=== PATIENT | female | born 1995 | race Caucasian/White ===

== ENCOUNTER 2017-06-16 10:42 | Emergency (ER) | payer OTHER ==
[~2017-06-16] VITALS: Ht 152.4 cm; Wt 83.5 kg
[2017-06-16 10:53] VITALS: Ht 152.4 cm; Wt 83.5 kg
[2017-06-16] MEDS ORDERED: IBUP400T22 PO (11:54)
[2017-06-16] MEDS ORDERED: DOXY100T20 PO (11:54)
--- NOTE | 2017-06-16 11:57 | ERD ---
ER Documentation Chief Complaint Chief Complaint left thumb swelling x 3 days, no injury HPI This 21-year-old female presents with left thumb pain, redness and swelling for the last 3 days. There is no history of trauma. No fevers, vomiting, shortness of breath or chest pain. ROS All systems reviewed and are negative except as per history of present illness. Medications Home Meds Active Scripts Ibuprofen* (Ibuprofen*) 400 Mg Tablet, 400 MG PO Q6H Y for PAIN, #15 TAB Prov:KASIE MCWILLIAMS MD 06/16/17 Doxycycline Hyclate* (Doxycycline Hyclate*) 100 Mg Tablet.dr, 100 MG PO BID for 7 Days, TAB Prov:KASIE MCWILLIAMS MD 06/16/17 Allergies Allergies: Coded Allergies: No Known Allergy (Unverified , 06/16/17) PMhx/Soc Hx Miscellaneous Medical Probl: Yes (DOWN'S SYNDROME) Hx Alcohol Use: No Hx Substance Use: No Hx Tobacco Use: No Physical Exam Vitals Vital Signs Date Time Temp Pulse Resp B/P Pulse Ox O2 Delivery O2 Flow Rate FiO2 06/16/17 10:53 97.5 95 20 128/69 100 Physical Exam Const: [], [id number]. Head: Atraumatic Eyes: Normal Conjunctiva ENT: Normal External Ears, Nose and Mouth. Neck: Full range of motion..~ No meningismus. Resp: Clear to auscultation bilaterally Cardio: Regular rate and rhythm, no murmurs Abd: Soft, non tender, non distended. Normal bowel sounds Skin: No petechiae or rashes. There is some redness and pointing pustule consistent with a paronychia on the left thumb. There is no bony tenderness or deformities or restricted range of motion weakness or proximal tendon tenderness. Back: No midline or flank tenderness Ext: No cyanosis, or edema Neur: Awake and alert Psych: Normal Mood and Affect Procedures/MDM Patient presents with signs of the left thumb paronychia without evidence to suggest osteomyelitis, tenosynovitis, sepsis, deficits. History does not suggest fracture or dislocation. Procedure note-left thumb was prepped with Betadine. An 18-gauge needle was used to unroofed the paronychia. Significant pus was expressed. Wound was dressed and patient tolerated procedure well. Discharged home with a prescription of doxycycline ibuprofen, further observation at home and return precautions. He was advised for wound check in 2 days otherwise sooner for worsening redness, fevers, new symptoms. Departure Diagnosis: Primary Impression: Paronychia Condition: Stable Patient Instructions: Paronychia Additional Instructions: Cheque otro vez con atkinson doctor primario en el proximo sosa or regresa para mas o nueva simptomas. KASIE MCWILLIAMS MD Jun 16, 2017 11:57
== END 2017-06-16 12:09 | disposition home or self-care (01) ==
LOC: FTE 10:42
DX: L03.012 Cellulitis of left finger (principal)
CPT/HCPCS: 10060; Z7502